=== PATIENT | female | born 1975 | race Caucasian/White ===

== ENCOUNTER 2017-04-01 19:55 | Emergency (ER) | payer SELFPAY ==
[2017-04-01] MEDS ORDERED: Sodium Chloride 0.9% 10 ML Syringe FLUSH PRN (20:12)
[2017-04-01] MEDS ORDERED: Ondansetron 4 MG/2 ML SDV IVPUSH ONE (20:12)
[2017-04-01] MEDS ORDERED: Sodium Chloride 0.9% 2.5 ML Syringe FLUSH PRN (20:12)
[2017-04-01] MEDS ORDERED: Sodium Chloride 0.9% 1,000 ML IV ONE (20:12)
[2017-04-01] MEDS ORDERED: Lidocaine 1% 20 ML MDV ONE (21:06)
[2017-04-01] MEDS ORDERED: Insulin Regular, Human 100 Units/ML 10 ML Vial ONE (21:34)
--- NOTE | 2017-04-01 21:46 | PCM.SN ---
- Free Text/Narrative Note: Called for difficult IV placement - attempted a 22Ga to surface vein in R arm - pt screamed and moved - unable to place. Next used 1mL 1% lido and attempted deep placement in L upper arm - able to get a flash, but unable to thread catheter. Dr. Benton notified and requests a physician to physician call if a line needs to be placed. It is my understanding that the pt is signing out AMA.
--- NOTE | 2017-04-01 21:48 | EDM.PDOC ---
ED HPI DIABETIC EMERGENCY - General Chief Complaint: Diabetic Complaint Stated Complaint: DIABETIC Time Seen by Provider: 04/01/17 20:08 - History of Present Illness INITIAL COMMENTS - FREE TEXT/NARRATIVE: HISTORY AND PHYSICAL: [41-year-old female brought in by EMS due to 2 hyperglycemia] History of Present Illness: [Patient has been diabetic since she was 5 y/o 2 days ago was in [place] and she received fluids] [facility] Review of Systems: As per history of present illness and below otherwise all systems reviewed and negative. Past medical history: As per history of present illness and as reviewed below otherwise noncontributory. Surgical history: As per history of present illness and as reviewed below otherwise noncontributory. Social history: No reported history of drug or alcohol abuse. Family history: As per history of present illness and as reviewed below otherwise noncontributory. Physical exam: Alert female who is teary-eyed does not want to be here. Bedside glucose over 600 by EMS. Bedside glucose here 500. 10 units subcutaneous regular insulin given HEENT: Atraumatic, normocehpalic, pupils reactive, negative for conjunctival pallor or scleral icterus, mucous membranes moist, throat clear, neck supple, nontender, trachea midline. Lungs: Clear to auscultation, breath sounds equal bilaterally, chest non tender. Heart: S1S2, regular, negative for clicks, rubs, or JVD. Abdomen: Soft, nondistended, nontender. Negative for masses or hepatossplenmegaly. Negative for costovertebral tenderness. Ports nausea vomited x1. Pelvis: Stable nontender. Genitourinary: Deferred. Rectal: Deferred Extremities: Atraumatic, negative for cords or calf pain. Neurovascular unremarkable. Neuro: Awake, alert, oriented. Cranial nerves II through XII unremarkable. Cerebellum unremarkable. Motor and sensory unremarkable throughout. Exam nonfocal. Difficult to obtain IV access/ ABGs obtained no DKA noted hyperglycemia. STONER OUT was here and unable to initiate IV access Diagnostics: [ABG CBC CMP] Therapeutics: [10 units regular insulin subcutaneous] Impression: [Hyperglycemia] Plan: [] Patient is signing papers for an AMA discharge/ patient insists that she knows how to take care of herself she has been diabetic for many and does not want to be here. discussed complications of her diabetes if not treated appropriately and patient has signed AMA paper. Noncompliance with diabetic regimen can result in permanent disability and even patient is aware of these stated complications. Definitive disposition and diagnosis as appropriate pending reevaluation and review of above. Timing/Duration: Reports: Day(s):, Sudden onset Location, General: Reports: abdomen Quality: Reports: Ache, Same as previous episode Severity: moderate Improves with: Reports: None Worsens with: Reports: None Associated Symptoms: Reports: headaches Most Recent Blood Sugar: 500 Associated Symptoms (General): Reports: no other symptoms - Related Data Allergies/ADRs: Allergies Allergy/AdvReac Type Severity Reaction Status Date / Time Penicillins Allergy Hives Verified 10/15/16 06:14 Home Meds: Home Meds Baclofen 10 mg PO 10/15/16 [History] Carisoprodol [Soma] 250 mg PO 10/15/16 [History] ClonazePAM [KlonoPIN] 10/15/16 [History] Docusate Sodium [Col-Rite] 50 mg PO 10/15/16 [History] Estrogens, Conjugated [Premarin] 1.25 mg PO DAILY 10/15/16 [History] Eszopiclone 3 mg PO 10/15/16 [History] Ibuprofen 200 mg PO 10/15/16 [History] Insulin Aspart [Novolog Flexpen] 10/15/16 [History] Insulin Glarg,Human.Rec.Analog [Lantus Solostar] 10/15/16 [History] Metoclopramide [Reglan] 10/15/16 [History] Pregabalin [Lyrica] 100 mg PO TID 10/15/16 [History] Sennosides [Ex-Lax Maximum Strength] 10/15/16 [History] Terbinafine [LamISIL] 10/15/16 [History] diphenhydrAMINE [Benadryl] 50 mg PO BEDTIME PRN 10/15/16 [History] Past Medical History Cardiovascular History: Reports: None Respiratory History: Reports: Pneumonia, recurrent Genitourinary History: Reports: Other (see below) Other Genitourinary History: "kidney problems" Neurological History: Reports: None Psychiatric History: Reports: Anxiety, Other (see below) Other Psychiatric History: insomia Endocrine/Metabolic History: Reports: Diabetes, type II Immunologic History: Reports: None Oncologic (Cancer) History: Reports: None Dermatologic History: Reports: None - Past Surgical History Head Surgeries/Procedures: Reports: None GI Surgical History: Reports: Cholecystectomy Female Surgical History: Reports: Hysterectomy Musculoskeletal Surgical History: Reports: Other (see below) Other Musculoskeletal Surgeries/Procedures:: lumbar fusion Social & Family History - Recreational Drug Use Recreational Drug Use: No ED ROS GENERAL - Review of Systems Review Of Systems: ROS reveals no pertinent complaints other than HPI. ED EXAM GENERAL NO PERIP PULSE - Physical Exam Exam: See Below (see dictation) Course - Vital Signs Last Recorded V/S: Last Vital Signs Temp 36.9 C 04/01/17 19:55 Pulse 103 H 04/01/17 19:55 Resp 16 04/01/17 19:55 BP 130/95 H 04/01/17 19:55 Pulse Ox 98 04/01/17 19:55 - Orders/Labs/Meds Orders: Active Orders 24 hr Category Date Time Status Blood Glucose Check, Bedside [RC] ONETIME Care 04/01/17 21:20 Active CBC WITH AUTO DIFF [HEME] Stat Lab 04/01/17 21:37 Received COMPREHENSIVE METABOLIC PN,CMP [CHEM] Stat Lab 04/01/17 21:37 Received KETONES,BLOOD [CHEM] Stat Lab 04/01/17 21:37 Received Insulin Regular, Human [NovoLIN R] Med 04/02/17 21:24 Once 10 unit SUBCUT ONETIME ONE Insulin Regular, Human [NovoLIN R] Med 04/02/17 21:26 Once 10 unit SUBCUT ONETIME ONE Sodium Chloride 0.9% [Saline Flush] Med 04/01/17 20:12 Active 10 ml FLUSH ASDIRECTED PRN Sodium Chloride 0.9% [Saline Flush] Med 04/01/17 20:12 Active 2.5 ml FLUSH ASDIRECTED PRN Saline Lock Insert [OM.PC] Stat Oth 04/01/17 20:12 Ordered Medication Orders Insulin Human Regular (Novolin R) 10 unit SUBCUT ONETIME ONE PRN Reason: Protocol Stop: 04/02/17 21:25 Last Admin: 04/01/17 21:37 Dose: 10 units Insulin Human Regular (Novolin R) 10 unit SUBCUT ONETIME ONE PRN Reason: Protocol Stop: 04/02/17 21:27 Sodium Chloride (Saline Flush) 10 ml FLUSH ASDIRECTED PRN PRN Reason: Keep Vein Open Sodium Chloride (Saline Flush) 2.5 ml FLUSH ASDIRECTED PRN PRN Reason: Keep Vein Open Labs: Laboratory Tests 04/01/17 04/01/17 04/01/17 Range/Units 20:10 20:10 20:30 ABG pH 7.384 (7.35-7.45) ABG pCO2 35 (35-45) mmHG ABG pO2 57 L (75-100) mmHG ABG HCO3 21 L (22-26) mEq/L ABG Total CO2 18.5 ABG Base Excess -3.9 L (-2.0-2.0) Urine Color YELLOW Urine Appearance SLT CLOUDY Urine pH 5.5 (5.0-8.0) Ur Specific [place] <= 1.005 (1.001-1.035) Urine Protein NEGATIVE (NEGATIVE) mg/dL Urine Glucose (UA) >=1000 (NEGATIVE) mg/dL Urine Ketones NEGATIVE (NEGATIVE) mg/dL Urine Occult Blood NEGATIVE (NEGATIVE) Urine Nitrite POSITIVE H (NEGATIVE) Urine Bilirubin NEGATIVE (NEGATIVE) Urine Urobilinogen 0.2 (<2.0) EU/dL Ur Leukocyte Esterase NEGATIVE (NEGATIVE) Urine RBC 0-1 (0-2/HPF) Urine WBC 1-2 (0-5/HPF) Ur Epithelial Cells FEW (NONE-FEW) Urine Bacteria 1+ H (NEGATIVE) Urine HCG, Qual NEGATIVE (NEGATIVE) Meds: Medications Generic Name Dose Route Start Last Admin Trade Name Freq PRN Reason Stop Dose Admin Insulin Human Regular 10 unit 04/02/17 21:24 04/01/17 21:37 Novolin R SUBCUT 04/02/17 21:25 10 units ONETIME ONE Administration Protocol Insulin Human Regular 10 unit 04/02/17 21:26 Novolin R SUBCUT 04/02/17 21:27 ONETIME ONE Protocol Sodium Chloride 10 ml 04/01/17 20:12 Saline Flush FLUSH ASDIRECTED PRN Keep Vein Open Sodium Chloride 2.5 ml 04/01/17 20:12 Saline Flush FLUSH ASDIRECTED PRN Keep Vein Open Discontinued Medications Generic Name Dose Route Start Last Admin Trade Name Freq PRN Reason Stop Dose Admin Sodium Chloride 1,000 mls @ 999 mls/hr 04/01/17 20:12 Normal Saline IV 04/01/17 21:12 .Bolus ONE Insulin Human Regular Confirm 04/01/17 21:34 Novolin R Administered 04/01/17 21:35 Dose 1,000 unit .ROUTE .STK-MED ONE Lidocaine HCl Confirm 04/01/17 21:06 04/01/17 21:37 Xylocaine 1% Administered 04/01/17 21:07 3 ml Dose Administration 20 ml .ROUTE .STK-MED ONE Ondansetron HCl 4 mg 04/01/17 20:12 Zofran IVPUSH 04/01/17 20:13 ONETIME ONE Departure - Departure Time of Disposition: 21:50 Disposition: Against Medical Advice 07 Condition: fair Clinical Impression: Hyperglycemia Forms: ED Department Discharge, Refusal of Care AMA - My Orders Last 24 Hours: My Active Orders 04/01/17 20:12 Sodium Chloride 0.9% [Saline Flush] 10 ml FLUSH ASDIRECTED PRN Sodium Chloride 0.9% [Saline Flush] 2.5 ml FLUSH ASDIRECTED PRN Saline Lock Insert [OM.PC] Stat 04/01/17 21:20 Blood Glucose Check, Bedside [RC] ONETIME 04/01/17 21:37 CBC WITH AUTO DIFF [HEME] Stat COMPREHENSIVE METABOLIC PN,CMP [CHEM] Stat KETONES,BLOOD [CHEM] Stat 04/02/17 21:24 Insulin Regular, Human [NovoLIN R] 10 unit SUBCUT ONETIME ONE 04/02/17 21:26 Insulin Regular, Human [NovoLIN R] 10 unit SUBCUT ONETIME ONE - Assessment/Plan Last 24 Hours: My Active Orders 04/01/17 20:12 Sodium Chloride 0.9% [Saline Flush] 10 ml FLUSH ASDIRECTED PRN Sodium Chloride 0.9% [Saline Flush] 2.5 ml FLUSH ASDIRECTED PRN Saline Lock Insert [OM.PC] Stat 04/01/17 21:20 Blood Glucose Check, Bedside [RC] ONETIME 04/01/17 21:37 CBC WITH AUTO DIFF [HEME] Stat COMPREHENSIVE METABOLIC PN,CMP [CHEM] Stat KETONES,BLOOD [CHEM] Stat 04/02/17 21:24 Insulin Regular, Human [NovoLIN R] 10 unit SUBCUT ONETIME ONE 04/02/17 21:26 Insulin Regular, Human [NovoLIN R] 10 unit SUBCUT ONETIME ONE
[2017-04-01 22:26] LABS: CHLORIDE,CL 102 mmol/L (98-110); SODIUM,NA 133 mmol/L (136-146)
[2017-04-01 22:29] VITALS: BP 105/60
[2017-04-02] MEDS ORDERED: Insulin Regular, Human 100 Units/ML 10 ML Vial SUBCUT ONE ×2 (21:24→21:26)
== END 2017-04-01 21:45 | disposition left against medical advice (07) ==
LOC: MW.ED 19:55
DX: E11.65 Type 2 diabetes mellitus with hyperglycemia (principal); F41.9 Anxiety disorder, unspecified; Z88.0 Allergy status to penicillin; Z79.4 Long term (current) use of insulin; Z90.49 Acquired absence of other specified parts of digestive tract; Z90.710 Acquired absence of both cervix and uterus; Z87.01 Personal history of pneumonia (recurrent); Z79.899 Other long term (current) drug therapy
CPT/HCPCS: 36415; 36600; 80053; 81001; 81025; 82009; 82803; 85025; 96372; 99284; 99285-25

== ENCOUNTER 2017-04-02 02:10 | Emergency (ER) | payer SELFPAY ==
[2017-04-02] MEDS ORDERED: Insulin Regular, Human 100 Units/ML 10 ML Vial SUBCUT ONE (02:24)
[2017-04-02] MEDS ORDERED: Sodium Chloride 0.9% 2.5 ML Syringe FLUSH PRN (03:07)
[2017-04-02] MEDS ORDERED: Aspirin 81 MG Tab.Chew PO ONE (03:07)
[2017-04-02] MEDS ORDERED: Sodium Chloride 0.9% 10 ML Syringe FLUSH PRN (03:07)
[2017-04-02] MEDS ORDERED: LORazepam 2 MG/ML MDV IM ONE (03:28)
[2017-04-02] MEDS ORDERED: LORazepam 2 MG/ML MDV ONE (03:29)
--- NOTE | 2017-04-02 04:17 | EDM.PDOC ---
[id number] Information: Reports: Patient History Limitations: Reports: No Limitations Upper Abdominal Pain Score (Numeric/FACES): 8 Lower Back Pain Score (Numeric/FACES): 10 - Related Data Allergies Allergy/AdvReac Type Severity Reaction Status Date / Time aspirin Allergy Hives Verified 04/02/17 02:22 ketorolac [From Toradol] Allergy Hives Verified 04/02/17 02:22 morphine Allergy Hives Verified 04/02/17 02:22 Penicillins Allergy Hives Verified 10/15/16 06:14 Home Meds: Home Meds Baclofen 10 mg PO 10/15/16 [History] Carisoprodol [Soma] 250 mg PO 10/15/16 [History] ClonazePAM [KlonoPIN] 10/15/16 [History] Docusate Sodium [Col-Rite] 50 mg PO 10/15/16 [History] Estrogens, Conjugated [Premarin] 1.25 mg PO DAILY 10/15/16 [History] Eszopiclone 3 mg PO 10/15/16 [History] Ibuprofen 200 mg PO 10/15/16 [History] Insulin Aspart [Novolog Flexpen] 10/15/16 [History] Insulin Glarg,Human.Rec.Analog [Lantus Solostar] 10/15/16 [History] Metoclopramide [Reglan] 10/15/16 [History] Pregabalin [Lyrica] 100 mg PO TID 10/15/16 [History] Sennosides [Ex-Lax Maximum Strength] 10/15/16 [History] Terbinafine [LamISIL] 10/15/16 [History] diphenhydrAMINE [Benadryl] 50 mg PO BEDTIME PRN 10/15/16 [History] Past Medical History Cardiovascular History: Reports: None Respiratory History: Reports: Pneumonia, Recurrent Genitourinary History: Reports: Other (See Below) Other Genitourinary History: "kidney problems" Neurological History: Reports: None Psychiatric History: Reports: Anxiety, Other (See Below) Other Psychiatric History: insomia Endocrine/Metabolic History: Reports: Diabetes, Type I Immunologic History: Reports: None Oncologic (Cancer) History: Reports: None Dermatologic History: Reports: None - Infectious Disease History Infectious Disease History: Reports: Chicken Pox - Past Surgical History Head Surgeries/Procedures: Reports: None GI Surgical History: Reports: Cholecystectomy Female Surgical History: Reports: Hysterectomy Musculoskeletal Surgical History: Reports: Other (See Below) Other Musculoskeletal Surgeries/Procedures:: lumbar fusion; lower back surgery Social & Family History - Family History Family Medical History: Noncontributory - Tobacco Use Smoking Status *Q: Current Every Day Smoker Years of Tobacco use: 15 Packs/Tins Daily: 0.5 - Caffeine Use Caffeine Use: Reports: None - Recreational Drug Use Recreational Drug Use: No ED ROS GENERAL - Review of Systems Review Of Systems: See Below (History of present illness) ED EXAM, GI/ABD - Physical Exam Exam: See Below (History of present illness) Course - Vital Signs Last Recorded V/S: Last Vital Signs Temp 36.6 C 04/02/17 06:41 Pulse 102 H 04/02/17 06:41 Resp 20 04/02/17 06:41 BP 118/70 04/02/17 06:41 Pulse Ox 98 04/02/17 06:41 - Orders/Labs/Meds Labs: Laboratory Tests 04/02/17 04/02/17 04/02/17 Range/Units 02:30 04:15 04:15 WBC 12.91 H (4.0-11.0) K/uL RBC 4.92 (4.30-5.90) M/uL Hgb 14.3 (12.0-16.0) g/dL Hct 42.7 (36.0-46.0) % MCV 86.8 (80.0-98.0) fL MCH 29.1 (27.0-32.0) pg MCHC 33.5 (31.0-37.0) g/dL RDW Std Deviation 43.4 (28.0-62.0) fl RDW Coeff of Ya 14 (11.0-15.0) % Plt Count 381 (150-400) K/uL MPV 10.20 (7.40-12.00) fL Neut % (Auto) 62.9 (48.0-80.0) % Lymph % (Auto) 30.8 (16.0-40.0) % Slope % (Auto) 5.5 (0.0-15.0) % Eos % (Auto) 0.5 (0.0-7.0) % Baso % (Auto) 0.3 (0.0-1.5) % Neut # (Auto) 8.1 H (1.4-5.7) K/uL Lymph # (Auto) 4.0 H (0.6-2.4) K/uL Slope # (Auto) 0.7 (0.0-0.8) K/uL Eos # (Auto) 0.1 (0.0-0.7) K/uL Baso # (Auto) 0.0 (0.0-0.1) K/uL Nucleated RBC % 0.0 /100WBC Nucleated RBCs # 0 K/uL Sodium 137 (136-146) mmol/L Potassium 3.9 (3.5-5.1) mmol/L Chloride 106 (98-110) mmol/L Carbon Dioxide 18 L (21-31) mmol/L BUN 20 (6.0-23.0) mg/dL Creatinine 0.8 (0.6-1.5) mg/dL Est Cr Clr Drug Dosing 69.13 mL/min Estimated GFR (MDRD) > 60.0 ml/min Glucose 380 H (60-110) mg/dL POC Glucose (60-110) mg/dL Calcium 9.9 (8.8-10.8) mg/dL Total Bilirubin 0.2 (0.1-1.5) mg/dL AST 9 (5-40) IU/L ALT 22 (8-54) IU/L Alkaline Phosphatase 96 (40-150) Total Protein 7.4 (6.0-8.0) g/dL Albumin 3.8 (3.5-5.0) g/dL Globulin 3.6 H (2.0-3.5) g/dL Albumin/Globulin Ratio 1.1 L (1.3-2.8) Urine Color YELLOW Urine Appearance CLEAR Urine pH 5.5 (5.0-8.0) Ur Specific [place] 1.010 (1.001-1.035) Urine Protein NEGATIVE (NEGATIVE) mg/dL Urine Glucose (UA) >=1000 (NEGATIVE) mg/dL Urine Ketones NEGATIVE (NEGATIVE) mg/dL Urine Occult Blood TRACE-LYSED (NEGATIVE) Urine Nitrite NEGATIVE (NEGATIVE) Urine Bilirubin NEGATIVE (NEGATIVE) Urine Urobilinogen 0.2 (<2.0) EU/dL Ur Leukocyte Esterase NEGATIVE (NEGATIVE) Urine RBC 0-2 (0-2/HPF) Urine WBC 1-4 (0-5/HPF) Ur Epithelial Cells FEW (NONE-FEW) Urine Bacteria FEW (NEGATIVE) 04/02/17 04/02/17 04/02/17 Range/Units 05:09 05:49 06:29 WBC (4.0-11.0) K/uL RBC (4.30-5.90) M/uL Hgb (12.0-16.0) g/dL Hct (36.0-46.0) % MCV (80.0-98.0) fL MCH (27.0-32.0) pg MCHC (31.0-37.0) g/dL RDW Std Deviation (28.0-62.0) fl RDW Coeff of Ya (11.0-15.0) % Plt Count (150-400) K/uL MPV (7.40-12.00) fL Neut % (Auto) (48.0-80.0) % Lymph % (Auto) (16.0-40.0) % Slope % (Auto) (0.0-15.0) % Eos % (Auto) (0.0-7.0) % Baso % (Auto) (0.0-1.5) % Neut # (Auto) (1.4-5.7) K/uL Lymph # (Auto) (0.6-2.4) K/uL Slope # (Auto) (0.0-0.8) K/uL Eos # (Auto) (0.0-0.7) K/uL Baso # (Auto) (0.0-0.1) K/uL Nucleated RBC % /100WBC Nucleated RBCs # K/uL Sodium (136-146) mmol/L Potassium (3.5-5.1) mmol/L Chloride (98-110) mmol/L Carbon Dioxide (21-31) mmol/L BUN (6.0-23.0) mg/dL Creatinine (0.6-1.5) mg/dL Est Cr Clr Drug Dosing mL/min Estimated GFR (MDRD) ml/min Glucose (60-110) mg/dL POC Glucose 267 H 186 H 173 H (60-110) mg/dL Calcium (8.8-10.8) mg/dL Total Bilirubin (0.1-1.5) mg/dL AST (5-40) IU/L ALT (8-54) IU/L Alkaline Phosphatase (40-150) Total Protein (6.0-8.0) g/dL Albumin (3.5-5.0) g/dL Globulin (2.0-3.5) g/dL Albumin/Globulin Ratio (1.3-2.8) Urine Color Urine Appearance Urine pH (5.0-8.0) Ur Specific [place] (1.001-1.035) Urine Protein (NEGATIVE) mg/dL Urine Glucose (UA) (NEGATIVE) mg/dL Urine Ketones (NEGATIVE) mg/dL Urine Occult Blood (NEGATIVE) Urine Nitrite (NEGATIVE) Urine Bilirubin (NEGATIVE) Urine Urobilinogen (<2.0) EU/dL Ur Leukocyte Esterase (NEGATIVE) Urine RBC (0-2/HPF) Urine WBC (0-5/HPF) Ur Epithelial Cells (NONE-FEW) Urine Bacteria (NEGATIVE) Meds: Medications Discontinued Medications Generic Name Dose Route Start Last Admin Trade Name Reganq PRN Reason Stop Dose Admin Sodium Chloride 1,000 mls @ 999 mls/hr 04/02/17 04:28 04/02/17 04:35 Normal Saline IV 04/02/17 05:28 999 mls/hr .Bolus ONE Administration Insulin Human Regular 100 unit 100 mls @ 7 mls/hr 04/02/17 04:30 04/02/17 05: 06 / Sodium Chloride IV 7 unit/hr TITRATE DREA 7 mls/hr Protocol Administration 7 UNIT/HR Sodium Chloride 1,000 mls @ 999 mls/hr 04/02/17 04:36 04/02/17 05:29 Normal Saline IV 04/02/17 05:36 999 mls/hr .Bolus ONE Administration Sodium Chloride 1,000 mls @ 999 mls/hr 04/02/17 04:36 04/02/17 06:39 Normal Saline IV 04/02/17 05:36 Not Given .Bolus ONE Insulin Human Regular 10 unit 04/02/17 02:24 04/02/17 03:51 Novolin R SUBCUT 04/02/17 02:25 10 units ONETIME ONE Administration Protocol Lorazepam 2 mg 04/02/17 03:28 04/02/17 03:33 Ativan IM 04/02/17 03:29 2 mg ONETIME ONE Administration Lorazepam Confirm 04/02/17 03:29 04/02/17 03:33 Ativan Administered 04/02/17 03:30 Not Given Dose 2 mg .ROUTE .STK-MED ONE Lorazepam 1 mg 04/02/17 05:54 04/02/17 06:05 Ativan IVPUSH 04/02/17 05:55 1 mg ONETIME ONE Administration Potassium Chloride 60 meq 04/02/17 05:30 Klor-Con PO ASDIRECTED DREA Potassium Chloride 40 meq 04/02/17 05:31 04/02/17 05:41 Klor-Con PO 04/02/17 05:32 Not Given ASDIRECTED ONE Potassium Chloride 40 meq 04/02/17 05:40 04/02/17 05:40 Klor-Con M20 PO 04/02/17 05:41 40 meq ONETIME ONE Administration Potassium Chloride Confirm 04/02/17 05:38 04/02/17 06:03 Klor-Con M20 Administered 04/02/17 05:39 Not Given Dose 40 meq .ROUTE .STK-MED ONE Sodium Chloride 10 ml 04/02/17 03:07 Saline Flush FLUSH ASDIRECTED PRN Keep Vein Open Sodium Chloride 2.5 ml 04/02/17 03:07 Saline Flush FLUSH ASDIRECTED PRN Keep Vein Open Departure - Departure Time of Disposition: 06:45 Disposition: Against Medical Advice 07 Clinical Impression: Hyperglycemia, Uncontrolled diabetes mellitus, Medical non-compliance, Anxiety - Discharge Information Referrals: PCP,None [Primary Care Provider] - Forms: ED Department Discharge ED HPI GI/ABDOMINAL - General Chief Complaint: Abdominal Pain Stated Complaint: BLOOD SUGAR LEVELS Time Seen by Provider: 04/02/17 02:13 Source of Information: Reports: Patient History Limitations: Reports: No Limitations - History of Present Illness INITIAL COMMENTS - FREE TEXT/NARRATIVE: HISTORY AND PHYSICAL: History of present illness: [41-year-old female with a history of diabetes, variably compliant with her insulin also with a history of anxiety and insomnia now presents emergent department complaining of not feeling well. Patient states her sugar has been over 500 admitting frequently. She states she's been using her insulin but it "doesn't work ." Patient reports that her removed her long acting insulin her regimen recently. By her description her glucose is been impossible control since that time. Patient feels that she is compliant with the appropriate diabetic diet. Patient was seen earlier in the emergency department but when she was told she did not have ketones in her urine she did not want any further attempts at IV access and signed out AGAINST MEDICAL ADVICE. Patient was aware of possibility of or permanent disability. She now returns to the emergency department stating that she still is a feel well and her sugars still uncontrolled. She is not vomiting nor she have diarrhea. She is tolerating by mouth intake without difficulty. Review of systems: As per history of present illness and below otherwise all systems reviewed and negative. Past medical history: As per history of present illness and as reviewed below otherwise noncontributory. Surgical history: As per history of present illness and as reviewed below otherwise noncontributory. Social history: No reported history of drug or alcohol abuse. Family history: As per history of present illness and as reviewed below otherwise noncontributory. Physical exam: Patient is anxious while conversing but calm while texting on her phone after every conversation HEENT: Atraumatic, normocephalic, pupils reactive, negative for conjunctival pallor or scleral icterus, mucous membranes moist, throat clear, neck supple, nontender, trachea midline. Lungs: Clear to auscultation, breath sounds equal bilaterally, chest nontender. Heart: S1S2, regular, negative for clicks, rubs, or JVD. Abdomen: Soft, nondistended, nontender. Negative for masses or hepatosplenomegaly. Negative for costovertebral tenderness. Pelvis: Stable nontender. Genitourinary: Deferred. Rectal: Deferred. Extremities: Atraumatic, negative for cords or calf pain. Neurovascular unremarkable. Neuro: Awake, alert, oriented. Cranial nerves grossly unremarkable. Cerebellum unremarkable. Motor and sensory unremarkable throughout. Exam nonfocal. Diagnostics: [Urinalysis with no ketonuria,] Procedure: Placement of left external jugular IV by ER MMerle. Patient in Trendelenburg with the left neck exposed. With alcohol scrub. 21-gauge are inserted by me with positive venous return. Flush normal saline without infiltration. Patient tolerated well no complications. IV fluids and insulin drip initiated Therapeutics: [By mouth fluids which patient is tolerating without difficulty, the efficacy of by mouth hydration in this case only limited by effort IV fluids and insulin drip once IV access obtained Ativan given IM for anxiolysis] Impression: [Hyperglycemia Uncontrolled diabetes Dehydration] Plan: [Patient with uncontrolled diabetes and hyperglycemia secondary to noncompliance with diet and insulin therapy, operative by limited insight into the critical importance of good diabetes control and anxiety disorder with significant contributory anxiety component today. Was gradually improved with hydration and insulin therapy. Patient under 200 with second liter of IV fluids and tolerating by mouth intake. Definitive disposition and diagnosis as appropriate pending reevaluation and review of above. Critical care :74 minutes - Related Data Allergies/ADRs: Allergies Allergy/AdvReac Type Severity Reaction Status Date / Time aspirin Allergy Hives Verified 04/02/17 02:22 ketorolac [From Toradol] Allergy Hives Verified 04/02/17 02:22 morphine Allergy Hives Verified 04/02/17 02:22 Penicillins Allergy Hives Verified 10/15/16 06:14 Home Meds: Home Meds Baclofen 10 mg PO 10/15/16 [History] Carisoprodol [Soma] 250 mg PO 10/15/16 [History] ClonazePAM [KlonoPIN] 10/15/16 [History] Docusate Sodium [Col-Rite] 50 mg PO 10/15/16 [History] Estrogens, Conjugated [Premarin] 1.25 mg PO DAILY 10/15/16 [History] Eszopiclone 3 mg PO 10/15/16 [History] Ibuprofen 200 mg PO 10/15/16 [History] Insulin Aspart [Novolog Flexpen] 10/15/16 [History] Insulin Glarg,Human.Rec.Analog [Lantus Solostar] 10/15/16 [History] Metoclopramide [Reglan] 10/15/16 [History] Pregabalin [Lyrica] 100 mg PO TID 10/15/16 [History] Sennosides [Ex-Lax Maximum Strength] 10/15/16 [History] Terbinafine [LamISIL] 10/15/16 [History] diphenhydrAMINE [Benadryl] 50 mg PO BEDTIME PRN 10/15/16 [History] Departure - Departure Time of Disposition: 06:45 Disposition: Against Medical Advice 07 Condition: Fair Clinical Impression: Hyperglycemia, Uncontrolled diabetes mellitus, Medical non-compliance, Anxiety Referrals: PCP,None [Primary Care Provider] - Forms: ED Department Discharge
[2017-04-02] MEDS ORDERED: Sodium Chloride 0.9% 1,000 ML IV ONE ×3 (04:28→04:36)
[2017-04-02 04:45] LABS: CHLORIDE,CL 106 mmol/L (98-110); SODIUM,NA 137 mmol/L (136-146)
[2017-04-02] MEDS ORDERED: Potassium Chloride 20 MEQ Packet PO SCH (05:30)
[2017-04-02] MEDS ORDERED: Potassium Chloride 20 MEQ Packet PO ONE (05:31)
[2017-04-02] MEDS ORDERED: Potassium Chloride 20 MEQ Tab.ER ONE (05:38)
[2017-04-02] MEDS ORDERED: Potassium Chloride 20 MEQ Tab.ER PO ONE (05:40)
[2017-04-02] MEDS ORDERED: LORazepam 2 MG/ML MDV IVPUSH ONE (05:54)
[2017-04-02 06:44] VITALS: BP 118/70
== END 2017-04-02 06:41 | disposition left against medical advice (07) ==
LOC: MW.ED 02:10
DX: E10.65 Type 1 diabetes mellitus with hyperglycemia (principal); E86.0 Dehydration; F41.9 Anxiety disorder, unspecified; F17.210 Nicotine dependence, cigarettes, uncomplicated; Z88.0 Allergy status to penicillin; Z79.4 Long term (current) use of insulin; Z79.899 Other long term (current) drug therapy; Z90.49 Acquired absence of other specified parts of digestive tract; Z90.710 Acquired absence of both cervix and uterus; Z88.6 Allergy status to analgesic agent; Z88.5 Allergy status to narcotic agent; Z87.01 Personal history of pneumonia (recurrent)
CPT/HCPCS: 36415; 80053; 81001; 82962; 85025; 96361; 96365; 96372; 96375; 99284; A9270; J2060; J7040; J1815-GY